=== PATIENT | male | born 1965 | race Caucasian/White ===

== ENCOUNTER → 2024-01-22 06:36 | Outpatient (REF) | payer OTHER, SELFPAY | LOC: RCS 06:36 | PROVIDERS: ATTENDING PHYSICIAN Internal Medicine Cardiovascular Disease; FAMILY PHYSICIAN Nurse Practitioner Family | DX: Z95.2 Presence of prosthetic heart valve (principal) | CPT/HCPCS: 93306 ==

== ENCOUNTER → 2024-10-15 12:11 | Outpatient (REF) | payer OTHER, SELFPAY | LOC: RCS 12:11 | PROVIDERS: ATTENDING PHYSICIAN Internal Medicine Cardiovascular Disease; FAMILY PHYSICIAN Nurse Practitioner Family | DX: Z95.2 Presence of prosthetic heart valve (principal) | CPT/HCPCS: 93306 ==